=== PATIENT | female | born 1985 | race American Indian/Alaskan Native ===

== ENCOUNTER 2021-07-02 14:46 | Emergency (ER) | payer MEDICAID ==
[2021-07-02] MEDS ORDERED: IBUPROFEN 800 MG TAB PO ONE (15:46)
--- NOTE | 2021-07-02 17:01 | Emergency Department Report ---
ED Fever HPI - General Chief Complaint: Upper Respiratory Infection Stated Complaint: CHILLS, BODYACHE Time Seen by Provider: 07/02/21 15:32 - History of Present Illness Initial Comments: 35-year-old -[place] female presents to the emergency room complaining of fever and exposure to flu from her . She states that all 3 of her kids have been sick. Mother states she is up-to-date on all her vaccines. She does have a 7-month-old that she is breast-feeding. She just complains of body aches. No cough no runny nose no nasal congestion no chest pain or shortness of breath. Timing/Duration: intermittent Fever Severity/Quality: greater than 100.5 F Fever Therapy PROCESS CONTROL SUPERVISOR: none Associated Symptoms: headache ED Review of Systems ROS: Stated complaint: CHILLS, BODYACHE Other details as noted in HPI Comment: All other systems reviewed and negative ED Past Medical Hx - Past Medical History Hx Asthma: Yes - Medications Home Medications: Home Medications Medication Instructions Recorded Confirmed Last Taken Type Oseltamivir [Tamiflu] 75 mg PO BID 5 Days #10 cap 07/02/21 Unknown Rx ED Physical Exam - General Limitations: No Limitations General appearance: alert, in no apparent distress - Head Head exam: Present: atraumatic, normocephalic - Eye Eye exam: Present: normal appearance - ENT ENT exam: Present: mucous membranes moist - Neck Neck exam: Present: normal inspection - Respiratory Respiratory exam: Present: normal lung sounds bilaterally. Absent: respiratory distress - Cardiovascular Cardiovascular Exam: Present: regular rate, normal rhythm. Absent: systolic murmur, diastolic murmur, rubs, gallop - GI/Abdominal GI/Abdominal exam: Present: soft, normal bowel sounds - Extremities Exam Extremities exam: Present: normal inspection - Back Exam Back exam: Present: normal inspection - Neurological Exam Neurological exam: Present: alert, oriented X3 - Psychiatric Psychiatric exam: Present: normal affect, normal mood - Skin Skin exam: Present: warm, dry, intact, normal color. Absent: rash ED Course Vital Signs 07/02/21 15:14 Temperature 101.9 F H Pulse Rate 123 H Respiratory 16 Rate Blood Pressure 135/89 [Left] O2 Sat by Pulse 98 Oximetry ED Medical Decision Making - Medical Decision Making 35-year-old -[place] female presents to the emergency room complaining of fever and exposure to flu from her . She states that all 3 of her kids have been sick. Mother states she is up-to-date on all her vaccines. She does have a 7-month-old that she is breast-feeding. She just complains of body aches. No cough no runny nose no nasal congestion no chest pain or shortness of breath. Flu test obtained by this provider and sent to lab. It is negative. Patient is given ibuprofen. States that she has had negative Covid testing. Patient most likely has a viral syndrome. Encouraged to increase her water intake Critical care attestation.: If time is entered above; I have spent that time in minutes in the direct care of this critically ill patient, excluding procedure time. ED Disposition Clinical Impression: Fever, Exposure to the flu Disposition: 01 HOME / SELF CARE / HOMELESS Is pt being admited?: No Does the pt Need Aspirin: No Condition: Stable Additional Instructions: Flu negative. Will place you on Tamiflu. Increase fluids Tylenol and or Ibuprofen. Follow up with your doctor. Prescriptions: Oseltamivir [Tamiflu] 75 mg PO BID 5 Days #10 cap Referrals: PRIMARY CARE, [Primary Care Provider] - 3-5 Days Your, Primary Care Provider [Other] - 3-5 Days Time of Disposition: 17:52
[2021-07-02 19:44] VITALS: BP 134/81
== END 2021-07-02 19:45 | disposition home or self-care (01) ==
LOC: ED 14:46
DX: Z20.828 Contact with and (suspected) exposure to other viral communicable diseases (principal); R50.9 Fever, unspecified; J45.909 Unspecified asthma, uncomplicated; Z88.8 Allergy status to other drugs, medicaments and biological substances; Z79.899 Other long term (current) drug therapy
CPT/HCPCS: 87400; 99283